=== PATIENT | female | born 1955 | race Caucasian/White ===

== ENCOUNTER 2017-01-01 03:28 | Observation (INO) | payer OTHER ==
[~2017-01-01] VITALS: Ht 162.6 cm; Wt 107.7 kg
[~2017-01-01 03:28] MED LIST: Glucophage PO; Lipitor PO; MICROZIDE12.5 M1 PO; ZESTRIL,PRINIVI10 M1 PO
[2017-01-01 04:20] LABS: MCH 28.8 PG (29.0-34.0); MCHC 32.7 G/DL (30.0-36.0); MCV 88.1 FL (83-99); MEAN PLAT.VOLUME 9.6 uM^3 (9.5-12.4); PLATELET COUNT 233 K/uL (156-360); RBC DIS.WIDTH-CV 14.8 % (11.8-14.6); RBC DIS.WIDTH-SD 47.8 % (39-53)
[2017-01-01 04:41] LABS: CHLORIDE 100 mEq/L (99-109); SODIUM 137 mEq/L (136-147)
[2017-01-01 04:42] LABS: GLUCOSE 157 mg/dL (70-99)
[2017-01-01 04:44] LABS: ANION GAP 11 MEQ/L (2-14)
[2017-01-01 04:46] LABS: GFR ESTIMATE (CALCULATED) > 59 mL/min/
[2017-01-01 04:47] LABS: UREA NITROGEN (BUN) 24 mg/dL (9-23)
[2017-01-01] MEDS ORDERED: AMARYL1 MG PO (05:25)
[2017-01-01] MEDS ORDERED: AMLODIPINE BESY10 MG PO (06:16)
[2017-01-01 07:59] VITALS: BP 124/59
[2017-01-01 08:00] VITALS: BP 132/61
[2017-01-01 12:12] VITALS: BP 134/60
[2017-01-01] MEDS ORDERED: LIPITOR40 MG PO (13:50)
[2017-01-01] MEDS ORDERED: ZESTRIL40 MG PO (13:51)
[2017-01-01] MEDS ORDERED: GLUCOPHAGE XR750 MG PO (13:51)
[2017-01-01] MEDS ORDERED: AMARYL2 MG PO (13:51)
[2017-01-01] MEDS ORDERED: AZELASTINE HCL6 ML BOTH EYES (13:53)
[2017-01-01 16:41] VITALS: BP 128/62
[2017-01-01 20:18] VITALS: BP 170/79
[2017-01-01 23:59] VITALS: BP 117/57
[2017-01-02 04:33] VITALS: BP 116/65
[2017-01-02 07:46] VITALS: BP 130/62
[2017-01-02 08:24] LABS: POINT-OF-CARE METER ID UU13113831
[2017-01-02] MEDS ORDERED: AZITHROMYCIN500 M1 PO (11:17)
[2017-01-02] MEDS ORDERED: SPIRIVA RESPIMAT4 GM IH (11:18)
[2017-01-02] MEDS ORDERED: BENZONATATE100 MG PO (11:18)
[2017-01-02] MEDS ORDERED: NICOTINE PATCH1 EAC2 TD (11:18)
[2017-01-02] MEDS ORDERED: LORAZEPAM0.5 MG PO (11:21)
[2017-01-02] MEDS ORDERED: PREDNISONE10 MG PO (11:21)
[2017-01-02 12:22] LABS: POINT-OF-CARE METER ID UU13113831
== END 2017-01-02 13:05 | disposition home or self-care (01) ==
LOC: EME 03:28 → ENRESERV 05:46 → EDOF 06:07 → 5WEST 06:07 → EDOF 06:07 → 5WEST 07:49
PROVIDERS: Student in an Organized Health Care Education/Training Program
DX: J44.0 Chronic obstructive pulmonary disease with (acute) lower respiratory infection (principal); J20.9 Acute bronchitis, unspecified; J44.1 Chronic obstructive pulmonary disease with (acute) exacerbation; R06.89 Other abnormalities of breathing; F17.210 Nicotine dependence, cigarettes, uncomplicated; E11.9 Type 2 diabetes mellitus without complications; I10 Essential (primary) hypertension; E78.5 Hyperlipidemia, unspecified; E66.01 Morbid (severe) obesity due to excess calories; Z68.41 Body mass index [BMI] 40.0-44.9, adult; Z82.5 Family history of asthma and other chronic lower respiratory diseases; Z82.3 Family history of stroke; Z79.84 Long term (current) use of oral hypoglycemic drugs; Z79.4 Long term (current) use of insulin
CPT/HCPCS: 71020; 80048; 82948; 85027; 85379; 93005; 94640; 94640 76; 94760; 94799; 99202; 99281; 99285; G0378; J0696; J1650; J1815; J2930; J7030; J7050; J7512